=== PATIENT | female | born 1935 | race Caucasian/White ===

== ENCOUNTER 2017-03-22 16:27 | Emergency (ER) | payer OTHER ==
--- NOTE | 2017-03-22 16:43 | EDPHY ---
HPI/HX/ROS/PE/MDM Narrative: CHIEF COMPLAINT: Blood in urine and left rib pain HISTORY OF PRESENT ILLNESS: The patient is a 81 y/o female who reported a fall down several stairs earlier today. She noticed blood in her urine after the fall and also is reporting left rib and left low abdominal pain. The pain has worsened since the fall. She also notes she has mild right arm and leg pain. There is also mild pain while breathing, which she associates with her left rib pain. She does have a recent use of Prednisone. Denies history of diabetes, CAD, COPD, anticoagulant use, or recent illness. No head trauma, no neck pain, no neurologic symptoms, no LOC, no vomiting or diarrhea. Otherwise well. Not anticoagulated. REVIEW OF SYSTEMS: Aside from elements discussed in the HPI, a comprehensive 10-point review of systems was reviewed and is negative. PAST MEDICAL HISTORY: Hypertension, arthritis SOCIAL HISTORY: Family at bedside, visiting from [place] VITAL SIGNS: Reviewed by me; see NN. GENERAL: Well-developed, well-nourished, in no acute distress. HEENT: Head: Atraumatic, normocephalic. Face: Atraumatic. PERRL, EOMI, no nystagmus. Oropharynx: No trauma, normal occlusion. Neck: Nontender to palpation, no pain with range of motion, no adenopathy. CHEST: Left lateral chest tenderness, no crepitus, no subcutaneous air palpable. LUNGS: Clear to auscultation bilaterally, breath sounds are equal. CARDIAC: Regular rate and rhythm, no rubs, murmurs or gallops. ABDOMEN: LLQ tenderness, soft, nondistended, bowel sounds normal. No guarding or rebound. BACK: No CVA tenderness. No cervical, thoracic, or lumbar spine tenderness. EXTREMITIES: Right distal forearm tenderness and ecchymosis with mild edema, no deformity, normal range of motion. PULSES: 2+ and equal throughout. NEURO: Alert and oriented x3, cranial nerves are intact throughout, normal motor , normal sensation. SKIN: Warm and dry, no rash. Portions of this note were transcribed by a medical genetics director. I personally performed a history, physical exam, medical decision making, and confirmed accuracy of information the transcribed note. ED Course: The patient is a 81 y/o female who presents with hematuria and left rib and abdominal pain secondary to a fall down several stairs. On exam she has tenderness to her LLQ and left lateral chest wall. She also has tenderness to her right distal forearm. Plan on IV, abdominal and chest CT, and 15mg IV Toradol. 0: Spoke with Dr. Du, radiologist. Left renal contusion on CT but no extravasation, No intraabdominal pathology. No rib fractures or pulmonary contusion or PTX 0: Reassessed patient and discussed laboratory and imaging results. Return precautions provided, patient is comfortable with this plan. MDM: Differential diagnosis of this patients injury was considered including but not limited to intracranial injury, long bone and pelvic bone fracture, spinal injury, intrathoracic injury, extremity injury, intra-abdominal injury, lacerations, abrasions, and contusions. - Data Points Imaging Results: CT chest and Abdomen pelvis: Impression: 1. Left renal contusion. 2. Incidental findings in the lungs, liver , and spleen. Follow-up noncontrast CT chest is recommended in 12 months per Fleischner Society guidelines. I telephoned results to Dr. Salinas at 1850 hours. Imaging: Discussed imaging studies w/ scalloper Radiologist, I viewed and interpreted images myself Laboratory Results: Laboratory Results 03/22/17 17:01 03/22/17 17:01 Medications Given: Discontinued Medications Hydrocodone Bitart/Acetaminophen (Carlin 5/325mg Prepack#6) 1 btl TAKEHOME EDNOW ONE Stop: 03/22/17 19:42 Last Admin: 03/22/17 19:51 Dose: 1 btl Ketorolac Tromethamine (Toradol) 15 mg IVP EDNOW ONE Stop: 03/22/17 17:53 Last Admin: 03/22/17 17:53 Dose: 15 mg General Time Seen by Provider: 03/22/17 16:38 Initial Vital Signs: Initial Vital Signs Temperature (C) 36.9 C 03/22/17 16:33 Heart Rate 100 03/22/17 16:33 Respiratory Rate 18 03/22/17 16:33 Blood Pressure 163/74 H 03/22/17 16:33 O2 Sat (%) 94 03/22/17 16:33 O2 Delivery Mode Room Air Allergies/Adverse Reactions: No Known Allergies Allergy (Unverified 03/22/17 16:31) Home Medications: Medication Instructions Recorded Pravastatin Sodium 03/22/17 traZODone 03/22/17 Departure - Departure Disposition: Home, Routine, Self-Care Clinical Impression: Renal contusion Qualifiers: Encounter type: initial encounter Laterality: left Qualified Code(s): S37.012A - Minor contusion of left kidney, initial encounter Hematuria Qualifiers: Hematuria type: other microscopic Qualified Code(s): R31.29 - Other microscopic hematuria; R31.2 - Other microscopic hematuria Condition: Good Instructions: Hydrocodone/Acetaminophen (By mouth), Hematuria (ED) Additional Instructions: 1. Take Carlin as prescribed for severe pain. 2. Do not take aleve tonight. You may use tylenol 1 gram tonight. 3. Follow up with your primary care provider in the next 3-5 days; you need to have repeat urines to make sure that that counts of red blood cells is decreasing 4. Return to the ED if you experience increasing abdominal pain, fever, increased blood in the urine, grossly bloody urine, lightheadedness, shortness of breath, or fainting. Referrals: WILFR[facility] [Other] - As per Instructions Report Scribed for: Francia Salinas Report Scribed by: Rocio Sapp Date of Report: 03/22/17 Time of Report: 16:41
[2017-03-22 17:04] LABS: COLOR YELLOW; LEUKOCYTE ESTERASE,URINE 1+ (NEGATIVE); NITRITE,URINE NEGATIVE (NEGATIVE)
[2017-03-22 17:09] LABS: BACTERIA TRACE /hpf (NONE SEEN); MUCUS 1+ /lpf (NONE-1+); RBC,URINE 50-182 /hpf (0-3)
[2017-03-22 17:12] LABS: % IMMATURE GRANULYOCYTES 0.3 % (0.0-1.1); ABSOLUTE IMMATURE GRANULOCYTES 0.02 10^3/uL (0.00-0.10); ADD DIFF? NO; ADD MORPH? NO; ADD SCAN? NO; ATYPICAL LYMPHOCYTE FLAG 0 (0-99); FRAGMENT RBC FLAG 0 (0-99); HEMOGLOBIN 13.6 g/dL (12.6-16.3); LEFT SHIFT FLG 0 (0-99); LIPEMIA HEMOLYSIS FLAG 90 (0-99); MEAN CELL HEMOGLOBIN 32.2 pg (27.9-34.1); MEAN CELL VOLUME 94.6 fL (81.5-99.8); MEAN PLATELET VOLUME 10.1 fL (8.7-11.7); PLATELET CLUMPS FLAG 10 (0-99); PLATELET COUNT 187 10^3/uL (150-400); RED BLOOD CELL COUNT 4.23 10^6/uL (4.18-5.33); RED CELL DISTRIBUTION WIDTH 12.2 % (11.5-15.2)
[2017-03-22 17:25] LABS: INR 1.05 (0.83-1.16); PROTIME(PATIENT) 13.6 SEC (12.0-15.0)
[2017-03-22 17:26] LABS: APTT 24.6 SEC (23.0-38.0)
[2017-03-22 17:30] LABS: ANION GAP 13 mEq/L (8-16); CALCIUM 9.6 mg/dL (8.5-10.4); CARBON DIOXIDE 27 mEq/l (22-31); CHLORIDE 101 mEq/L (97-110); CREATININE 1.3 mg/dL (0.6-1.0); GLOMERULAR FILTRATION RATE 40; GLUCOSE 127 mg/dL (70-100); POTASSIUM 4.1 mEq/L (3.5-5.2); SODIUM 141 mEq/L (134-144)
[2017-03-22] MEDS ORDERED: IOPAMIDOL (ISOVUE-300) 100 ML BTL ONE (17:50)
[2017-03-22] MEDS ORDERED: KETOROLAC 15 MG/1 ML SDV IVP ONE (17:52)
[2017-03-22] MEDS ORDERED: KETOROLAC 15 MG/1 ML SDV ONE (17:52)
[2017-03-22] MEDS ORDERED: HYDROCOD/APAP 5/325 PREPACK#6 BTL TAKEHOME ONE (19:41)
[2017-03-22 19:46] VITALS: BP 170/69; PULSE 86; RESP 16; TEMP 97.5; O2SAT 93
== END 2017-03-22 20:05 | disposition home or self-care (01) ==
DX: S37.012A Minor contusion of left kidney, initial encounter (principal); W10.9XXA Fall (on) (from) unspecified stairs and steps, initial encounter; R31.29 Other microscopic hematuria; I10 Essential (primary) hypertension
CPT/HCPCS: 96374; J1885; Q9967